=== PATIENT | female | born 1980 | race Caucasian/White ===

== ENCOUNTER 2018-06-30 21:28 | Emergency (ER) | payer OTHER ==
[~2018-06-30] VITALS: Ht 160 cm; Wt 61.2 kg
[~2018-06-30 21:28] MED LIST: AMPDEX10; AZIT250 PO; BENTYL20 MG PO; BUPRENORPHINE HC8 MG SL; BUSP10 PO; CARI350 PO; DULO30 PO; Desyrel50 MG PO; GABA100 PO; HYDACE5 PO; HYDACE5325 PO; HYDACE7.5 PO; IBUP600 PO; LEVFLO500 PO; MELO7.5 PO; MULVITMINE PO; Mucinex600 MG PO; NAPR500 PO; Norco 5-325 Ta1 EACH PO; ONDA4 PO; ONDA4ODT MM; OXYACE5T PO; OXYC30 PO; PSEU120ER PO; Prednisone20 MG PO; QUET25; Seasonique 0.11 EACH PO; Zithromax250 MG PO; Zofran Odt4 MG SL
[2018-06-30] MEDS ORDERED: HYDR1TAB94 PO (23:54)
[2018-07-01] MEDS ORDERED: BUPRENORPHINE HC8 MG SL (00:09)
[2018-07-01] MEDS ORDERED: DICL75ER PO (00:10)
[2018-07-01] MEDS ORDERED: Seasonique 0.11 EACH PO (00:11)
== END 2018-07-01 00:12 | disposition home or self-care (01) ==
LOC: ER 21:28
DX: S60.032A Contusion of left middle finger without damage to nail, initial encounter (principal); X50.9XXA Other and unspecified overexertion or strenuous movements or postures, initial encounter; Y99.0 Civilian activity done for income or pay; Z88.8 Allergy status to other drugs, medicaments and biological substances; Z88.0 Allergy status to penicillin; Z88.1 Allergy status to other antibiotic agents; Z88.6 Allergy status to analgesic agent; Z88.2 Allergy status to sulfonamides; Z79.899 Other long term (current) drug therapy; F17.210 Nicotine dependence, cigarettes, uncomplicated
CPT/HCPCS: 73130; 99283-25

== ENCOUNTER 2018-07-13 10:48 | Emergency (ER) | payer OTHER ==
[~2018-07-13] VITALS: Ht 160 cm; Wt 63.5 kg
[~2018-07-13 10:48] MED LIST changes: +DICL75ER PO; +HYDR1TAB94 PO
[2018-07-13] MEDS ORDERED: Cymbalta20 MG PO (11:24)
== END 2018-07-13 11:31 | disposition home or self-care (01) ==
LOC: ER 10:48
DX: Z76.0 Encounter for issue of repeat prescription (principal); M79.2 Neuralgia and neuritis, unspecified; R56.9 Unspecified convulsions; F17.210 Nicotine dependence, cigarettes, uncomplicated; Z88.1 Allergy status to other antibiotic agents; Z88.0 Allergy status to penicillin; Z88.8 Allergy status to other drugs, medicaments and biological substances; Z88.5 Allergy status to narcotic agent; Z88.2 Allergy status to sulfonamides; Z79.899 Other long term (current) drug therapy
CPT/HCPCS: 99281

== ENCOUNTER → 2020-09-02 | Outpatient (CLI) | payer OTHER ==
[~2020-09-02] MED LIST changes: +Cymbalta20 MG PO
== END | disposition home or self-care (01) ==
LOC: LAB SHORT 15:45 → LAB 15:45
DX: F11.10 Opioid abuse, uncomplicated (principal)
CPT/HCPCS: G0480

== ENCOUNTER 2021-04-28 07:23 | Day surgery (SDC) | payer OTHER ==
[~2021-04-28] VITALS: Ht 160 cm; Wt 63.9 kg
[~2021-04-28 07:23] MED LIST changes: +METO10 PO; +OMEP20ER PO
--- NOTE | 2021-04-28 07:37 | NUR ---
[facility] ADMISSION STARTED TO UNIT
--- NOTE | 2021-04-28 08:47 | NUR ---
04/28/21 0847 Alma Stein History, Chart, Medications and Allergies reviewed before start of procedure. Patient confirms NPO status and agrees with scheduled surgery. 3-LEAD EKG REVIEWED WITH PHYSICIAN PRIOR TO START OF PROCEDURE. MONITOR INTACT WITH CONTINUOUS PULSE OXIMETRY AND INTERMITTENT BP. PATIENT DETERMINED TO BE ASA APPROPRIATE FOR PROPOFOL SEDATION PRIOR TO START OF PROCEDURE BY . Bite Block Placed AND REMOVED AT END OF CASE.
--- NOTE | 2021-04-28 09:12 | NUR ---
RECIEVED PATIENT ON RECOVERY AFTER UPPER SCOPE PATIENT SLEEPY AND WAKING UP
--- NOTE | 2021-04-28 09:38 | NUR ---
Discharge instructions reviewed with patient. Patient verbalizes understanding. SENDING COPY TO PATIENT NOT SENT WITH. Patient States Post-Procedure ride home has been arranged. Discharged via wheelchair to private car for ride home.
== END 2021-04-28 23:11 | disposition home or self-care (01) ==
LOC: ORSCMMR 07:23 → ORD 08:30 → ORSCMMR 23:11
PROVIDERS: Internal Medicine Gastroenterology
PROC: 0DB78ZX Excision of Stomach, Pylorus, Via Natural or Artificial Opening Endoscopic, Diagnostic (ICD-10-PCS; principal; 2021-04-28 08:30)
PROC: 0DB98ZX Excision of Duodenum, Via Natural or Artificial Opening Endoscopic, Diagnostic (ICD-10-PCS; principal; 2021-04-28 08:30)
DX: K21.9 Gastro-esophageal reflux disease without esophagitis (principal); Z79.899 Other long term (current) drug therapy
CPT/HCPCS: 88305; 88342; A9270; J2704; J7120

== ENCOUNTER → 2022-08-04 | Outpatient (CLI) | payer OTHER ==
[2022-08-05 17:10] LABS: HPV 16 Negative (Negative); HPV 18 Negative (Negative); HPV OTHER HR TYPES Negative (Negative)
== END ==
LOC: RAD SHORT 14:20
PROVIDERS: Family Medicine
DX: Z01.419 Encounter for gynecological examination (general) (routine) without abnormal findings (principal)
CPT/HCPCS: 87624; G0123

== ENCOUNTER → 2023-03-21 | Outpatient (CLI) | payer OTHER ==
[2023-03-21 17:43] LABS: Alanine Aminotransfer (ALT/SGP 19 U/L (12-78); Albumin, Blood 3.7 g/dL (3.4-5.0); Albumin/Globulin Ratio 1.2 (0.8-1.8); Alk Phos 72 U/L (50-136); Anion Gap 1 mmol/L (6-16); Aspartate Aminotrans (AST/SGOT 20 U/L (12-37); Bilirubin, Total 0.5 mg/dL (0.1-1.0); Blood Urea Nitrogen 18 mg/dL (8-24); Bun/Creatinine Ratio 28.6 (12.0-20.0); CHOL/HDL RATIO 4.9; CO2, Blood 32 mmol/L (21-32); Calcium, Blood 8.8 mg/dL (8.5-10.1); Chloride, Blood 105 mmol/L (98-108); Cholesterol 330 mg/dL (50-200); Creatinine, Blood 0.63 mg/dL (0.40-1.00); Globulin, Blood 3.1 g/dL (2.2-4.0); Glomerular Filtration Rate 112 (60-); Glucose, Blood 99 mg/dL (70-99); HDL Cholesterol 67 mg/dL (>39); LDL/HDL RATIO 3.6; Low Density Lipoprotein Chol 239 mg/dL (0-110); Potassium, Blood 4.1 mmol/L (3.5-5.5); Sodium, Blood 138 mmol/L (136-145); Total Protein, Blood 6.8 g/dL (6.4-8.2); Triglycerides 119 mg/dL (30-160); Very Low Density Lipoprot Chol 24 mg/dL (6-32)
== END | disposition home or self-care (01) ==
LOC: LAB SHORT 14:39 → LAB 14:39
PROVIDERS: Family Medicine Adult Medicine
DX: M25.552 Pain in left hip (principal); E78.5 Hyperlipidemia, unspecified
CPT/HCPCS: 80053; 80061

== ENCOUNTER 2025-06-03 03:10 | Emergency (ER) | payer OTHER ==
[~2025-06-03] VITALS: Ht 160 cm; Wt 54.4 kg
[2025-06-03 05:40] VITALS: BP 105/68
[2025-06-03] MEDS ORDERED: ROSUVASTATIN CAL5 MG PO (05:43)
[2025-06-03] MEDS ORDERED: EZETIMIBE10 M6 PO (05:43)
== END 2025-06-03 05:45 | disposition home or self-care (01) ==
LOC: ER 03:10
DX: S01.81XA Laceration without foreign body of other part of head, initial encounter (principal); W01.198A Fall on same level from slipping, tripping and stumbling with subsequent striking against other object, initial encounter; F51.3 Sleepwalking [somnambulism]; Z23 Encounter for immunization; F17.210 Nicotine dependence, cigarettes, uncomplicated; Z88.1 Allergy status to other antibiotic agents; Z88.0 Allergy status to penicillin; Z88.2 Allergy status to sulfonamides; Z88.8 Allergy status to other drugs, medicaments and biological substances; Z79.899 Other long term (current) drug therapy
CPT/HCPCS: 70450; 70480; 90471; 90715; 99283-25

== ENCOUNTER → 2025-07-10 | Outpatient (CLI) | payer OTHER ==
[~2025-07-10] MED LIST changes: +EZETIMIBE10 M6 PO; +ROSUVASTATIN CAL5 MG PO
[2025-07-10 22:20] LABS: Anion Gap 6.0 mmol/L (3-11); Blood Urea Nitrogen 19.0 mg/dL (8-24); CO2, Blood 32.0 mmol/L (21-32); Calcium, Blood 8.7 mg/dL (8.5-10.1); Chloride, Blood 104.0 mmol/L (98-108); Creatinine, Blood 0.57 mg/dL (0.40-1.00); Ferritin, Serum 182.0 ng/mL (8-252); Follicle Stimulating Hormone 53.4 mIU/ml; Glucose, Blood 59.0 mg/dL (70-99); Magnesium, Blood 1.9 mg/dL (1.6-2.4); Potassium, Blood 4.2 mmol/L (3.5-5.5); Sodium, Blood 138.0 mmol/L (136-145); Thyroid Stimulating Hormone 0.568 uIU/mL (0.360-4.800); Total Iron Binding Capacity 344.0 ug/dL (250-450)
== END ==
LOC: LAB SHORT 17:34 → LAB 17:34
PROVIDERS: Family Medicine
DX: R53.82 Chronic fatigue, unspecified (principal); L60.3 Nail dystrophy; L65.9 Nonscarring hair loss, unspecified; R41.89 Other symptoms and signs involving cognitive functions and awareness; R23.2 Flushing
CPT/HCPCS: 80048; 82728; 83001; 83540; 83550; 83735; 84439; 84443; 84481